=== PATIENT | female | born 1980 | race Caucasian/White ===

== ENCOUNTER → 2018-06-05 | Outpatient (CLI) | payer BC ==
[~2018-06-05] MED LIST: CLEOCIN HCL150 MG PO; COMPAZINE10 MG PO; FOLIC ACID 40400 MCG PO; KEFLEX500 MG PO; LEVOTHYROXIN0.075 MG PO; LOPERAMIDE 2 MG2 M1 PO; MULTIVITAMINS1 EAC6 PO; PHENERGAN 25 MG25 M1 PO; PROBIOTIC1 EAC1; SYNTHROID25 MC1 PO; TRAMADOL 50 MG50 MG PO; TRINATE TABLET1 TAB PO
== END ==
LOC: M.LAB 11:04
DX: Z31.41 Encounter for fertility testing (principal)

== ENCOUNTER → 2018-11-02 | Outpatient (CLI) | payer BC | LOC: M.LAB 17:09 | DX: Z34.91 Encounter for supervision of normal pregnancy, unspecified, first trimester (principal); Z3A.00 Weeks of gestation of pregnancy not specified ==

== ENCOUNTER → 2018-11-06 | Outpatient (CLI) | payer BC | LOC: M.LAB 11:42 | DX: Z32.01 Encounter for pregnancy test, result positive (principal) ==